=== PATIENT | male | born 1960 | race Caucasian/White ===

== ENCOUNTER 2018-03-19 12:57 | Emergency (ER) | payer OTHER ==
[~2018-03-19] VITALS: Ht 175.3 cm; Wt 87.5 kg
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
[2018-03-19 13:52] LABS: BASO # 0.1 x10^3/uL (0.0-0.2); BASO % 0 % (0-3); EOS % 0 % (0-3); HEMATOCRIT 46.1 % (39.0-53.0); HEMOGLOBIN 15.9 g/dL (13.0-17.5); LYMPH # 0.9 x10^3/uL (1.0-4.8); LYMPH % 6 % (24-48); MEAN CORPUSCULAR HEMOGLOBIN 32 pg (25-35); MEAN CORPUSCULAR HGB CONC 34 g/dL (31-37); MEAN CORPUSCULAR VOLUME 92 fL (79-100); MONO # 1.1 x10^3/uL (0.0-1.1); MONO % 7 % (0-9); NEUT % 86 % (31-73); PLATELET COUNT 177 x10^3/uL (140-400); RED BLOOD COUNT 5.01 x10^6/uL (4.30-5.70); RED CELL DISTRIBUTION WIDTH 13.6 % (11.5-14.5); WHITE BLOOD COUNT 15.1 x10^3/uL (4.0-11.0)
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
[2018-03-19 14:08] LABS: ALBUMIN 3.8 g/dL (3.4-5.0); ALBUMIN/GLOBULIN RATIO 0.9 (1.0-1.7); CALCIUM 9.5 mg/dL (8.5-10.1); CREATININE 1.1 mg/dL (0.7-1.3); GFR 68.8; POTASSIUM 3.8 mmol/L (3.5-5.1); TOTAL BILIRUBIN 0.8 mg/dL (0.2-1.0)
[2018-03-19 14:24] LABS: % BANDS 4 % (0-9); % BASOS 1 % (0-3); % LYMPHS 3 % (24-48); % MONOS 9 % (0-10); % SEGS 83 % (35-66)
[2018-03-19 14:26] LABS: PLT ESTIMATE ADEQUATE (ADEQUATE)
[2018-03-19 14:27] LABS: PLATELET CLUMP PRESENT; POLYCHROMASIA SLIGHT; TOXIC GRANULATION SLIGHT
[2018-03-19] MEDS ORDERED: HYDR-2758 PO (14:31)
[2018-03-19 15:00] VITALS: BP 131/90
[2018-03-19] MEDS ORDERED: HYDROcodone/APAP 5/325MG 1 TAB TABLET PO ONE (15:30)
[2018-03-19] MEDS ORDERED: DIPHTH,PERTUSS(ACELL),TET TOX 0.5 ML DISP.SYRIN. VAX IM ONE (15:45)
== END 2018-03-19 15:40 | disposition home or self-care (01) ==
LOC: ER 12:57 → EEVIPCON 12:57 → ER 15:40
DX: S09.93XA Unspecified injury of face, initial encounter (principal); R51 Headache; M54.2 Cervicalgia; H11.31 Conjunctival hemorrhage, right eye; Z88.2 Allergy status to sulfonamides; X58.XXXA Exposure to other specified factors, initial encounter; Y93.89 Activity, other specified; Y99.8 Other external cause status; Y92.89 Other specified places as the place of occurrence of the external cause
CPT/HCPCS: 36415; 70450; 70486; 72125; 80053; 85007; 85025; 85610; 85730; 90471; 90715; 96374; 99285; J3010

== ENCOUNTER → 2021-12-06 | Outpatient (CLI) | payer OTHER ==
[~2021-12-06] MED LIST: HYDR-2155 PO
--- NOTE | 2021-12-06 16:37 | RAD ---
XR HIP (WITH OR WITHOUT PELVIS) 1 VIEW DATE: 12/06/2021 9:58 AM INDICATION: BILATERAL HIP PAIN COMPARISON: 11/14/2021. FINDINGS: Right: Postsurgical changes of right hip arthroplasty with cerclage wires. Unchanged hardware configu ration. No hardware dislocation. Left: No acute fracture. Severe degenerative changes of the hip. IMPRESSION: 1. Unchanged right hip arthroplasty. 2. Severe left hip osteoarthritis. Electronically signed by: Ronaldo Joseph MD (12/06/2021 4:35 PM) [id number]
== END ==
LOC: RAD 09:49
PROVIDERS: ATTEND Anesthesiology Pain Medicine
DX: Z02.71 Encounter for disability determination (principal); M16.12 Unilateral primary osteoarthritis, left hip; Z96.641 Presence of right artificial hip joint
CPT/HCPCS: 73521